=== PATIENT | male | born 2000 | race Caucasian/White ===

== ENCOUNTER 2022-09-10 02:46 | Emergency (ER) | payer OTHER ==
[~2022-09-10] VITALS: Ht 165.1 cm; Wt 72.6 kg
[2022-09-10 03:42] LABS: BASO # 0.1 10^3/uL (0.0-0.2); BASO % 0.8 % (0.0-1.0); EOS # 0.3 10^3/uL (0.0-0.5); EOS % 2.1 % (0.0-3.0); HEMATOCRIT 41.9 % (42.0-52.0); HEMOGLOBIN 13.9 g/dl (13.5-17.5); LYMPH # 3.4 10^3/uL (1.5-5.0); LYMPH % 21.3 % (24.0-44.0); MEAN CORPUSCULAR HGB CONC 33.2 g/dl (32.0-36.5); MEAN CORPUSCULAR VOLUME 87.3 fl (80.0-96.0); MONO # 0.9 10^3/uL (0.0-0.8); MONO % 5.4 % (2.0-8.0); NEUTROPHILS # 11.2 10^3/uL (1.5-8.5); PLATELET COUNT, AUTOMATED 272 10^3/uL (150-450)
[2022-09-10 04:03] LABS: LIPASE 25 U/L (12-53)
[2022-09-10 04:05] LABS: ALBUMIN 3.9 G/DL (3.2-5.2); ALKALINE PHOSPHATASE 74 U/L (46-116); ALT/SGPT 28 U/L (7.0-40); AST/SGOT 19 U/L (<34); BILIRUBIN,DIRECT 0.2 MG/DL (<0.4); BILIRUBIN,TOTAL 0.5 MG/DL (0.3-1.2); BLOOD UREA NITROGEN 20 MG/DL (9-23); CALCIUM LEVEL 8.8 MG/DL (8.5-10.1); CARBON DIOXIDE LEVEL 28 MMOL/L (20-31); CHLORIDE LEVEL 104 MMOL/L (98-107); CREATININE FOR GFR 0.95 MG/DL (0.70-1.30); GLOMERULAR FILTRATION RATE > 60.0 (>60); GLUCOSE, FASTING 169 MG/DL (60-100); POTASSIUM SERUM 3.6 MMOL/L (3.5-5.1); SODIUM LEVEL 140 MMOL/L (136-145); TOTAL PROTEIN 7.4 G/DL (5.7-8.2)
[2022-09-10 04:19] LABS: RSV AMPLIFICATION NEGATIVE (NEGATIVE)
[2022-09-10] MEDS ORDERED: ONDANSETRON 4MG 2ML VIAL IV ONE (05:00)
[2022-09-10] MEDS ORDERED: NS 1,000 ML IV ONE (05:00)
[2022-09-10] MEDS ORDERED: MORPHINE 4 MG/ML 1ML VIAL IV PRN (05:00)
[2022-09-10 07:15] LABS: AMPHETAMINES LEVEL URINE NEGATIVE (NEGATIVE); BARBITURATES URINE NEGATIVE (NEGATIVE); BENZODIAZEPINES URINE NEGATIVE (NEGATIVE); CANNABINOIDS URINE NEGATIVE (NEGATIVE); COCAINE METABOLITE URINE NEGATIVE (NEGATIVE); METHADONE URINE NEGATIVE (NEGATIVE); PHENCYCLIDINE URINE NEGATIVE (NEGATIVE)
[2022-09-10 07:18] LABS: OPIATES URINE POSITIVE (NEGATIVE)
[2022-09-10 09:41] VITALS: BP 138/81
== END 2022-09-10 09:40 | disposition home or self-care (01) ==
LOC: M ED 02:46
DX: N20.9 Urinary calculus, unspecified (principal)
CPT/HCPCS: 74176; 80048; 80076; 80307; 81001; 83605; 83690; 85025; 87631; 96361; 96374; 96375; 99284; J2270; J2405